=== PATIENT | male | born 1955 | race Caucasian/White ===

== ENCOUNTER 2017-03-04 14:09 | Emergency (ER) | payer OTHER ==
[~2017-03-04 14:09] MED LIST: ATIVAN-DPS0.5 MG PO; DULERA 100/58.8 GM IH; DUONEB DPS3 ML IH; FLORINEF0.1 MG PO; HABITROL DPS21 MG TD; LIDODERM PATC1 PATCH TP; MIRALAX17 GM PO; MOBIC DPS7.5 MG PO; NEURONTIN DPS600 MG PO; NILSTAT SUSP DPS5 ML PO; OXY IR DPS5 MG PO; PROTONIX40 MG PO; SENOKOT S1 TAB PO; SYNTHROID DPS0.15 MG PO; ZITHROMAX250 MG PO; ZYVOX600 MG PO
--- NOTE | 2017-03-07 12:41 | ER ---
ADMIT: 03/04/2017 RM/LOC: ER [facility] MR#: [id number] [address] [id number] LIBBY GARCIA [address] [place] [address] Emergency Room Report SEX: M AGE: 61 : 1955 DATE: 03/04/2017 ADDENDUM: A 61-year-old [place] white male coming in saying he is coughing up blood. Maybe it a little pink frothy. 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 CBC are chemistry are okay. His troponin is borderline, but he has not had any pain. His EKG was negative. I spoke with Dr. Taylor, and we are going to discharge him and have him follow up with the [facility] or Dr. Taylor as needed. CONDITION ON DISCHARGE: Good. Quang Garcia MD/ deepti JOB #: [id number] CC: Quang Garcia MD, Attending Physician UNKNOWN, Family Physician
== END 2017-03-04 17:10 | disposition home or self-care (01) ==
LOC: ER 14:09
DX: J44.9 Chronic obstructive pulmonary disease, unspecified (principal); I10 Essential (primary) hypertension; F17.210 Nicotine dependence, cigarettes, uncomplicated; Z88.1 Allergy status to other antibiotic agents; Z88.8 Allergy status to other drugs, medicaments and biological substances; Z79.899 Other long term (current) drug therapy; Z90.2 Acquired absence of lung [part of]; Z98.890 Other specified postprocedural states